=== PATIENT | female | born 1960 | race Caucasian/White ===

== ENCOUNTER 2021-06-16 16:45 | Emergency (ER) | payer BC, OTHER ==
[2021-06-16 17:28] VITALS: BP 181/80; PULSE 74
== END 2021-06-16 17:18 | disposition home or self-care (01) ==
LOC: VM.ED 16:45
DX: H11.32 Conjunctival hemorrhage, left eye (principal); E03.9 Hypothyroidism, unspecified; I10 Essential (primary) hypertension; Z79.899 Other long term (current) drug therapy
CPT/HCPCS: 99282; 99284